=== PATIENT | female | born 1970 | race Caucasian/White ===

== ENCOUNTER 2021-09-18 02:33 | Emergency (ER) | payer BC, OTHER ==
[2021-09-18] MEDS ORDERED: MAGNESIUM SULFATE 1 gm IVPB 1 GM/100 ML BAG IV ONE (03:28)
[2021-09-18] MEDS ORDERED: ONDANSETRON 4 MG/2 ML VIAL ONE ×2 (03:28→05:50)
[2021-09-18] MEDS ORDERED: MORPHINE 4 MG/ML SYR ONE (03:29)
[2021-09-18 03:43] LABS: Absolute Lymphocytes (CBC) 2.8 K/uL (0.7-4.9); Lymphocytes % 36.3 % (15.3-44.8); MPV 7.9 fL (7.6-11.3); RBC Red Blood Cell Count 4.74 M/uL (3.86-4.86)
[2021-09-18 03:52] LABS: Urine Appearance CLOUDY (Clear); Urine Bilirubin NEGATIVE (Negative); Urine Blood 2+ (Negative); Urine Color YELLOW (Yellow); Urine Glucose NEGATIVE (Negative); Urine Protein NEGATIVE (Negative); Urine Specific Gravity 1.025 (1.005-1.030); Urine pH 5.5 (5.0-7.0)
[2021-09-18 03:53] LABS: Urine Microscopic Reflex ORDER UMIC
[2021-09-18] MEDS ORDERED: MEPERIDINE HCL 25 MG/ML SYR ONE ×2 (03:56→05:50)
[2021-09-18 03:57] LABS: Potassium 3.4 mmol/L (3.5-5.1)
[2021-09-18 04:18] LABS: Urine Bacteria >50 /HPF (<20); Urine Mucus 2+ /HPF (NONE SEEN)
[2021-09-18] MEDS ORDERED: NA CHLORIDE 0.9% 1,000 ML ONE (04:59)
[2021-09-18] MEDS ORDERED: metroNIDAZOLE 500 MG TABLET ONE (04:59)
[2021-09-18] MEDS ORDERED: KETOROLAC 30 MG/ML INJ ONE (04:59)
[2021-09-18] MEDS ORDERED: CIPROFLOXACIN HCL 500 MG TAB ONE (04:59)
--- NOTE | 2021-09-18 05:39 | EDPHYS ---
Physician Documentation [facility] Name: Nevaeh Verde Age: 50 yrs Sex: Female : 1970 Arrival Date: 09/18/2021 Time: 02:37 Bed 15 Private MD: ED Physician Jamey Jimenez HPI: 09/18 02:54 This 50 yrs old Female presents to ER via Ambulatory with complaints of Back Pain - rn Left. 02:54 The patient complains of pain in the left low back and left mid back. The pain radiates rn to the abdomen. Onset: The symptoms/episode began/occurred 1 hour(s) ago. Modifying factors: The symptoms are alleviated by nothing. the symptoms are aggravated by nothing. Associated signs and symptoms: Pertinent positives: nausea, vomiting, Pertinent negatives: fever, urinary frequency, hematuria. Severity of pain: At its worst the pain was moderate in the emergency department the pain is unchanged. The patient has not experienced similar symptoms in the past. The patient has not recently seen a physician. Pt reports left flank pain, radiates to LLQ abdomen, began 1 hour ago and woke her up from sleep. No fever. No trauma. + nausea/vomiting. + famhx of kidney stones. . Historical: - Allergies: 02:53 No Known Allergies; st1 - PMHx: 02:53 Hypertensive disorder; st1 - Immunization history:: Adult Immunizations not up to date, Flu vaccine is not up to date. - Social history:: Smoking status: Patient denies any tobacco usage or history of. Patient/guardian denies using alcohol, street drugs, IV drugs, tobacco products. - Family history:: pertinent for kidney stones. - Hospitalizations: : No recent hospitalization is reported. ROS: 02:54 Constitutional: Negative for fever, chills, and weight loss, Eyes: Negative for injury, rn pain, redness, and discharge, Neck: Negative for injury, pain, and swelling, Cardiovascular: Negative for chest pain, palpitations, and edema, Respiratory: Negative for shortness of breath, cough, wheezing, and pleuritic chest pain, Abdomen/GI: + LLQ abd pain Back: + left lower back/flank pain : Negative for injury, bleeding, discharge, and swelling, MS/Extremity: Negative for injury and deformity, Skin: Negative for injury, rash, and discoloration, Neuro: Negative for headache, weakness, numbness, tingling, and seizure. Exam: 02:54 Constitutional: This is a well developed, well nourished patient who is awake, alert, rn appears uncomfortable, pacing Head/Face: Normocephalic, atraumatic. Eyes: Periorbital areas with no swelling, redness, or edema. Cardiovascular: Regular rate and rhythm. No pulse deficits. Respiratory: No increased work of breathing, no retractions or nasal flaring. Abdomen/GI: Soft, non-tender Skin: Warm, dry MS/ Extremity: Pulses equal, no cyanosis. Neuro: Awake and alert, GCS 15 Vital Signs: 02:52 BP 159 / 98; Pulse 78; Resp 16; Temp 98.1; Pulse Ox 98% on R/A; Pain 7/10; st1 02:57 Weight 86.18 kg; Height 5 ft. 4 in. (162.56 cm); lg3 05:43 BP 120 / 85; Pulse 59; Resp 17; Temp 98.1(O); Pulse Ox 99% on R/A; lg3 02:57 Body Mass Index 32.61 (86.18 kg, 162.56 cm) lg3 MDM: 02:38 Patient medically screened. rn 04:54 Differential diagnosis: nephrolithiasis, pyelonephritis, UTI, diverticulitis, rn mesenteric adenitis, viral syndrome, constipation. Data reviewed: vital signs, nurses notes, lab test result(s), radiologic studies. Response to treatment: the patient's symptoms have mildly improved after treatment. ED course: Pt still uncomfortable, states pain has improved but not gone. CT shows only mesenteric adenitis or nonspecific mesenteric edema. Pt without vascular hx and not in irregular heart rhythm to suggest mesenteric ischemia. Pt states had "stomach bug" 2 days ago with vomiting and diarrhea, and could explain some nonspecific mesenteric adenitis. Will give toradol and cover with abx for possible enteritis/colitis that we are just not seeing yet. . 05:37 Counseling: I had a detailed discussion with the patient and/or guardian regarding: the rn historical points, exam findings, and any diagnostic results supporting the discharge/admit diagnosis, lab results, radiology results, the need for outpatient follow up, to return to the emergency department if symptoms worsen or persist or if there are any questions or concerns that arise at home. Special discussion: Based on the patient's Hx, exam, and Dx evaluation, there is no indication for emergent surgery or inpatient Tx. It is understood by the patient/guardian that if the Sx's persist or worsen they need to return immediately for re-evaluation. I discussed with the patient/guardian in detail that at this point there is no indication for admission to the hospital. It is understood, however, that if the symptoms persist or worsen the patient needs to return immediately for re-evaluation. 09/18 02:53 Order name: CBC with Diff; Complete Time: 04:36 rn 09/18 02:53 Order name: Basic Metabolic Panel; Complete Time: 04:36 rn 09/18 02:53 Order name: Urine Culture rn 09/18 03:46 Order name: Urinalysis; Complete Time: 04:36 EDMS 09/18 03:54 Order name: Urine Microscopic Only; Complete Time: 04:36 EDMS 09/18 02:53 Order name: CT Stone Protocol rn 09/18 02:53 Order name: IV Start; Complete Time: 03:57 rn 09/18 02:53 Order name: Urine Dipstick-Ancillary (obtain specimen); Complete Time: 04:06 rn Administered Medications: 03:30 Drug: Zofran (Ondansetron) 4 mg Route: IVP; Site: right antecubital; lg3 03:31 Follow up: Response: No adverse reaction lg3 03:31 Drug: morphine 4 mg Route: IVP; Site: right antecubital; lg3 03:31 Follow up: Response: No adverse reaction; RASS: Alert and Calm (0) lg3 03:31 Drug: Magnesium Sulfate 1 grams Route: IVPB; Infused Over: 1 hrs; Site: right lg3 antecubital; 05:06 Follow up: Response: No adverse reaction; IV Status: Completed infusion; IV Intake: lg3 100ml 03:56 Drug: Demerol (meperidine) 25 mg Route: IVP; Site: right antecubital; lg3 03:56 Follow up: Response: No adverse reaction; RASS: Alert and Calm (0) lg3 05:06 Drug: Cipro (ciprofloxacin) 500 mg Route: PO; lg3 05:06 Follow up: Response: No adverse reaction lg3 05:06 Drug: Flagyl (metroNIDAZOLE) 500 mg Route: PO; lg3 05:06 Follow up: Response: No adverse reaction lg3 05:06 Drug: Ketorolac 30 mg Route: IVP; Site: right antecubital; lg3 05:06 Follow up: Response: No adverse reaction lg3 05:06 Drug: NS 0.9% 1000 ml Route: IV; Rate: 1000 ml; Site: right antecubital; lg3 06:09 Follow up: IV Status: Completed infusion; IV Intake: 1000ml lg3 05:52 Drug: Demerol (meperidine) 25 mg Route: IVP; Site: right antecubital; lg3 05:53 Follow up: Response: No adverse reaction; RASS: Alert and Calm (0) lg3 05:53 Drug: Zofran (Ondansetron) 4 mg Route: IVP; Site: right antecubital; lg3 05:53 Follow up: Response: No adverse reaction lg3 Disposition Summary: 09/18/21 05:38 Discharge Ordered Location: Home rn Problem: new rn Symptoms: have improved rn Condition: Stable rn Diagnosis - Nonspecific mesenteric lymphadenitis rn - Abdominal pain, unspecified rn Followup: rn - With: Private Physician - When: As needed - Reason: Recheck today's complaints, Re-evaluation by your physician Discharge Instructions: - Discharge Summary Sheet rn - Abdominal Pain, Adult rn - Mesenteric Adenitis, yarn examiner skeins Forms: - Medication Reconciliation Form rn - Thank You Letter rn - Antibiotic dental intern - Prescription Opioid Use rn Prescriptions: - Flagyl 500 mg Oral Tablet - take 1 tablet by ORAL route every 12 hours for 7 days; 14 tablet; Refills: 0, rn Product Selection Permitted - Cipro 500 mg Oral Tablet - take 1 tablet by ORAL route every 12 hours for 7 days; 14 tablet; Refills: 0, rn Product Selection Permitted - ondansetron 4 mg Oral tablet,disintegrating - take 1 tablet by ORAL route every 8 hours As needed; 15 tablet; Refills: 0, rn Product Selection Permitted - Tramadol 50 mg Oral Tablet - take 1 tablet by ORAL route every 8 hours as needed; 12 tablet; Refills: 0, rn Product Selection Permitted Signatures: Dispatcher [employer] EDJamey Oconnor MD MD rn Gibson, Lacie RN RN lg3 Dianna Butcher RN RN st1 Corrections: (The following items were deleted from the chart) 03:46 02:53 UA MICROSCOPIC+U.LAB.BRZ ordered. EDMS EDMS
--- NOTE | 2021-09-18 05:39 | ER ---
Nurse's Notes [facility] Name: Nevaeh Verde Age: 50 yrs Sex: Female : 1970 Arrival Date: 09/18/2021 Time: 02:37 Bed 15 Private MD: Diagnosis: Nonspecific mesenteric lymphadenitis;Abdominal pain, unspecified Presentation: 09/18 02:46 Chief complaint: Patient states: The patient woke up with left kidney pain that st1 radiates to the left lower quadrant. 02:46 Method Of Arrival: Ambulatory st1 02:52 Coronavirus screen: Vaccine status: Patient reports being unvaccinated. Ebola Screen: st1 No symptoms or risks identified at this time. Initial Sepsis Screen: Does the patient meet any 2 criteria? No. Patient's initial sepsis screen is negative. Does the patient have a suspected source of infection? No. Patient's initial sepsis screen is negative. Risk Assessment: Do you want to hurt yourself or someone else? Patient reports no desire to harm self or others. Onset of symptoms was September 18, 2021. 02:52 Acuity: ROSETTA 3 st1 Triage Assessment: 02:53 General: Appears distressed, uncomfortable, obese, well groomed, Behavior is st1 cooperative, anxious. Pain: Complains of pain in back- left lower Pain radiates to leftl ower quadrant. Musculoskeletal: No deficits noted. Historical: - Allergies: 02:53 No Known Allergies; st1 - PMHx: 02:53 Hypertensive disorder; st1 - Immunization history:: Adult Immunizations not up to date, Flu vaccine is not up to date. - Social history:: Smoking status: Patient denies any tobacco usage or history of. Patient/guardian denies using alcohol, street drugs, IV drugs, tobacco products. - Family history:: pertinent for kidney stones. - Hospitalizations: : No recent hospitalization is reported. Screenin:55 Abuse screen: Denies threats or abuse. Nutritional screening: No deficits noted. st1 Tuberculosis screening: No symptoms or risk factors identified. Fall Risk None identified. No fall in past 12 months (0 pts). No secondary diagnosis (0 pts). IV access (20 points). Ambulatory Aid- None/Bed Rest/Nurse Assist (0 pts). Gait- Normal/Bed Rest/Wheelchair (0 pts) Mental Status- Oriented to own ability (0 pts). Total Moses Fall Scale indicates No Risk (0-24 pts). Assessment: 02:55 Reassessment: Patient appears in no apparent distress at this time. please see triage st1 assessment. Neuro: No deficits noted. 04:07 General: Appears in no apparent distress. uncomfortable, Behavior is cooperative. Pain: lg3 Complains of pain in left mid back and left low back Pain currently is 10 out of 10 on a pain scale. Neuro: No deficits noted. Level of Consciousness is awake, alert, obeys commands, Oriented to person, place, time, situation. Vital Signs: 02:52 BP 159 / 98; Pulse 78; Resp 16; Temp 98.1; Pulse Ox 98% on R/A; Pain 7/10; st1 02:57 Weight 86.18 kg; Height 5 ft. 4 in. (162.56 cm); lg3 05:43 BP 120 / 85; Pulse 59; Resp 17; Temp 98.1(O); Pulse Ox 99% on R/A; lg3 02:57 Body Mass Index 32.61 (86.18 kg, 162.56 cm) lg3 ED Course: 02:37 Patient arrived in ED. wm 02:38 Jamey Jimenez MD is Attending Physician. rn 02:53 Triage completed. st1 02:53 Arm band placed on right wrist. st1 02:55 Patient has correct armband on for positive identification. st1 03:06 Jaylyn Dixon, RN is Primary Nurse. lg3 04:01 CT Stone Protocol In Process Unspecified. EDMS 04:08 Inserted saline lock: 20 gauge in right antecubital area, using aseptic technique. lg3 Blood collected. 05:44 No provider procedures requiring assistance completed. lg3 06:05 IV discontinued, intact, bleeding controlled, No redness/swelling at site. Pressure lg3 dressing applied. Administered Medications: 03:30 Drug: Zofran (Ondansetron) 4 mg Route: IVP; Site: right antecubital; lg3 03:31 Follow up: Response: No adverse reaction lg3 03:31 Drug: morphine 4 mg Route: IVP; Site: right antecubital; lg3 03:31 Follow up: Response: No adverse reaction; RASS: Alert and Calm (0) lg3 03:31 Drug: Magnesium Sulfate 1 grams Route: IVPB; Infused Over: 1 hrs; Site: right lg3 antecubital; 05:06 Follow up: Response: No adverse reaction; IV Status: Completed infusion; IV Intake: lg3 100ml 03:56 Drug: Demerol (meperidine) 25 mg Route: IVP; Site: right antecubital; lg3 03:56 Follow up: Response: No adverse reaction; RASS: Alert and Calm (0) lg3 05:06 Drug: Cipro (ciprofloxacin) 500 mg Route: PO; lg3 05:06 Follow up: Response: No adverse reaction lg3 05:06 Drug: Flagyl (metroNIDAZOLE) 500 mg Route: PO; lg3 05:06 Follow up: Response: No adverse reaction lg3 05:06 Drug: Ketorolac 30 mg Route: IVP; Site: right antecubital; lg3 05:06 Follow up: Response: No adverse reaction lg3 05:06 Drug: NS 0.9% 1000 ml Route: IV; Rate: 1000 ml; Site: right antecubital; lg3 06:09 Follow up: IV Status: Completed infusion; IV Intake: 1000ml lg3 05:52 Drug: Demerol (meperidine) 25 mg Route: IVP; Site: right antecubital; lg3 05:53 Follow up: Response: No adverse reaction; RASS: Alert and Calm (0) lg3 05:53 Drug: Zofran (Ondansetron) 4 mg Route: IVP; Site: right antecubital; lg3 05:53 Follow up: Response: No adverse reaction lg3 Intake: 05:06 IV: 100ml; Total: 100ml. lg3 06:09 IV: 1000ml; Total: 1100ml. lg3 Outcome: 05:38 Discharge ordered by . rn 06:04 Discharged to home ambulatory, with family. lg3 06:04 Condition: stable 06:04 Discharge instructions given to patient, Instructed on discharge instructions, follow up and referral plans. medication usage, Prescriptions given X 4. 06:09 Patient left the ED. lg3 Signatures: Dispatcher [employer] EDMS Jamey Jimenez MD MD rn Gibson, Lacie RN STEPHAN lg3 Sarita Charles Shellie RN RN st1 Corrections: (The following items were deleted from the chart) 02:53 02:46 Coronavirus screen: Vaccine status: st1 st1
[2021-09-18 06:16] VITALS: TEMP 98.1
[2021-09-18 06:17] VITALS: BP 120/85; O2SAT 99
--- NOTE | 2021-09-18 21:32 | RAD REPORT ---
EXAM DESCRIPTION: CT Abdomen and Pelvis Without Intravenous Contrast CLINICAL HISTORY: The patient is 50 years old and is Female; left flank and abd pain TECHNIQUE: Axial computed tomography images of the abdomen and pelvis without intravenous contrast. Sagittal and coronal reformatted images were created and reviewed. This CT exam was performed usi ng one or more of the following dose reduction techniques: automated exposure control, adjustment o f the mA and/or kV according to patient size, and/or use of iterative reconstruction technique. COMPARISON: No relevant prior studies available. FINDINGS: Lung bases: Unremarkable. No mass. No consolidation. ABDOMEN: Liver: Diffuse hepatic steatosis. Gallbladder and bile ducts: Unremarkable. No calcified stones. No ductal dilation. Pancreas: Unremarkable. No ductal dilation. Spleen: Unremarkable. No splenomegaly. Adrenals: Unremarkable. No mass. Kidneys and ureters: Nonobstructing calcification in the left kidney. Multiple renal sinus cysts bilaterally. Stomach and bowel: Unremarkable. No obstruction. No mucosal thickening. PELVIS: Appendix: No findings to suggest acute appendicitis. Bladder: Unremarkable. No stones. Reproductive: Uterus is not seen. ABDOMEN and PELVIS: Intraperitoneal space: Unremarkable. No free air. No significant fluid collection. Bones/joints: No acute fracture. No dislocation. Soft tissues: Unremarkable. Vasculature: Unremarkable. No abdominal aortic aneurysm. Lymph nodes: There is mild mesenteric edema in the left mid abdomen with adjacent prominent/enlar ged lymph nodes. IMPRESSION: 1. There is mild mesenteric edema in the left mid abdomen with adjacent prominent/enla rged lymph nodes. Findings are nonspecific but can be seen with mesenteric adenitis. 2. Diffuse hepatic steatosis. 3. Uterus is not seen. Electronically signed by: Surya Iqbal MD 09/18/2021 4:26 AM DISPATCH CLERK Due to temporary technical issues with the PACS/Fluency reporting system, reports are being signed by the in house radiologists without review as a courtesy to insure prompt reporting. The interpreting radiologist is fully responsible for the content of the report.
== END 2021-09-18 06:09 | disposition home or self-care (01) ==
LOC: ER 02:33
DX: I88.0 Nonspecific mesenteric lymphadenitis (principal); R11.2 Nausea with vomiting, unspecified; I10 Essential (primary) hypertension; Z87.442 Personal history of urinary calculi
CPT/HCPCS: 96365; 96361; 87088; 85025; 87086; 80048; 36415; 76377; 74176; 96375; 99284; 96366; J3475; J2175 ×2; J7030; J2405 ×2; 81003; 81015

== ENCOUNTER 2022-02-08 18:21 | Emergency (ER) | payer BC, OTHER ==
--- OUTSIDE RECORDS SUMMARY | 2022-02-08 19:22 | XMS REPORT | Continuity of Care Document ---
:1970 Author Organization [facility] t Address [address] [place] [address] Care Team Providers Name Role Phone KT CAMPBELL Attending Clinician Unavailable GILLIAN HUDSON Admitting Clinician Unavailable Problems This patient has no known problems. Allergies, Adverse Reactions, Alerts This patient has no known allergies or adverse reactions. Medications This patient has no known medications. Procedures This patient has no known procedures. Encounters Start End Encounter Admission Attending Care Care Encounter Source Date/Time Date/Time Type Type Clinicians Facility Department ID 2022-01-06 2022-01-08 Inpatient U JAVED CAMPBELL MED [id number] [facility] 09:43:00 12:10:00 KT mathis [facility] Results This patient has no known results.
[2022-02-08] MEDS ORDERED: NA CHLORIDE 0.9% 1,000 ML ONE (19:41)
[2022-02-08] MEDS ORDERED: MAGNESIUM SULFATE 1 gm IVPB 1 GM/100 ML BAG IV ONE (19:42)
[2022-02-08 19:52] LABS: Absolute Lymphocytes (CBC) 3.5 K/uL (0.7-4.9); Hematocrit 42.4 % (36.0-45.0); Lymphocytes % 45.6 % (15.3-44.8); MCV 86.9 fL (80-100); RBC Red Blood Cell Count 4.88 M/uL (3.86-4.86)
[2022-02-08 19:53] LABS: Urine Blood 1+ (Negative); Urine Glucose Negative (Negative); Urine Protein Negative (Negative); Urine Specific Gravity >=1.030 (1.005-1.030); Urine pH 5.5 (5.0-7.0)
[2022-02-08 20:14] LABS: Potassium 3.7 mmol/L (3.5-5.1); Troponin High Sensitivity 4.3 pg/mL (<58.9)
[2022-02-08 20:36] LABS: Urine Bacteria 20-50 /HPF (<20)
--- NOTE | 2022-02-08 20:49 | RAD REPORT ---
EXAM DESCRIPTION: CT - Head Brain Wo Cont - 02/08/2022 8:32 pm CLINICAL HISTORY: dizziness, weakness Headache, drowsiness COMPARISON: No comparisons TECHNIQUE: All CT scans are performed using dose optimization technique as appropriate and may inclu de automated exposure control or mA/KV adjustment according to patient size. FINDINGS: No intracranial hemorrhage, hydrocephalus or extra-axial fluid collection.Mild brain atrop hy.No areas of brain edema or evidence of midline shift. The paranasal sinuses and mastoids are clear. The calvarium is intact. IMPRESSION: No acute intracranial abnormality.
--- NOTE | 2022-02-08 20:54 | RAD REPORT ---
EXAM DESCRIPTION: CT - Chest For Pe Angio - 02/08/2022 8:39 pm CLINICAL HISTORY: Chest pain. positive ddimer COMPARISON: No comparisons TECHNIQUE: CT angiogram of the pulmonary arteries was performed with MIP. All CT scans are performed using dose optimization technique as appropriate and may include automated exposure control or mA/KV adjustment according to patient size. FINDINGS: No evidence of pulmonary thromboembolism. No acute aortic finding demonstrated. The lungs are clear. No significant pericardial or pleural fluid. No concerning bony finding. Fatty liver. IMPRESSION: No evidence of pulmonary thromboembolism. No acute lung findings.
--- NOTE | 2022-02-08 20:58 | RAD REPORT ---
EXAM DESCRIPTION: RAD - Chest Single View - 02/08/2022 8:46 pm CLINICAL HISTORY: palpatations Chest pain. COMPARISON: CHEST PA AND LAT 2 VIEW dated 08/01/2012; CHEST PA AND LAT 2 VIEW dated 07/14/2012; CHEST P A AND LAT 2 VIEW dated 06/21/2011; CHEST PA AND LAT 2 VIEW dated 06/23/2010 FINDINGS: Portable technique limits examination quality. The lungs are grossly clear. The heart is normal in size. No displaced fractures. IMPRESSION: No acute intrathoracic process suspected.
[2022-02-09 06:00] VITALS: TEMP 97.7
[2022-02-09 06:02] VITALS: BP 148/90; O2SAT 94
--- NOTE | 2022-02-09 07:20 | EKG ---
Test Date: 2022-02-08 Test Time: 19:27:50 [place] Man: ARNALDO MEASUREMENT RESULTS: Intervals: Rate: 90 ID: [id number] QRSD: 82 QT: 370 QTc: 452 [place]: P: 52 ID: [id number] QRS: 47 T: 59 INTERPRETIVE STATEMENTS: Normal sinus rhythm Normal ECG Compared to ECG 06/23/2010 12:56:10 Sinus arrhythmia no longer present Electronically Signed On 02-09-22 07:19:19 CDT by Lavelle Peace
--- NOTE | 2022-02-09 07:20 | EKG ---
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
--- NOTE | 2022-02-09 10:32 | EDPHYS ---
Physician Documentation [facility] Name: Nevaeh Verde Age: 51 yrs Sex: Female : 1970 Arrival Date: 02/08/2022 Time: 18:23 Bed 4 Private MD: ED Physician Jamey Jimenez HPI: 02/08 19:15 This 51 yrs old Female presents to ER via Ambulatory with complaints of Dizziness, rn Weakness. 19:15 The patient presents with dizziness, feeling faint, lightheadedness. Onset: The rn symptoms/episode began/occurred today. Modifying factors: The symptoms are alleviated by nothing, the symptoms are aggravated by movement of head, standing up. Associated signs and symptoms: Pertinent positives: shortness of breath, Pertinent negatives: abdominal pain, chest pain, seizure, syncope, vomiting. Severity of symptoms: At their worst the symptoms were moderate in the emergency department the symptoms have improved. The patient has experienced similar episodes in the past. The patient has not recently seen a physician. Pt reports intermittent episodes of dizziness, palpitations, sob. Reports lasts for a few minutes. is Fire/EMS and palpated and auscultated irregular HR into 120s. Pt states has happened before but not for about a month. No medication changes. Reports feels "weak all over". No focal weakness/numbness/speech problem. No chest pain. NO vomiting/diarrhea. No blood in stool or dark stool.. Historical: - Allergies: 19:01 No Known Allergies; eh3 - PMHx: 19:01 Hypertensive disorder; eh3 - Immunization history:: Adult Immunizations up to date. - Family history:: not pertinent. - Social history:: Smoking status: Patient denies any tobacco usage or history of. - Hospitalizations: : No recent hospitalization is reported. ROS: 19:15 Constitutional: Negative for fever, chills, and weight loss, Eyes: Negative for injury, rn pain, redness, and discharge, Neck: Negative for injury, pain, and swelling, Cardiovascular: Negative for chest pain, and edema, Respiratory: Negative for cough, wheezing, and pleuritic chest pain, Abdomen/GI: Negative for abdominal pain, nausea, vomiting, diarrhea, and constipation, Back: Negative for injury and pain, : Negative for injury, bleeding, discharge, and swelling, MS/Extremity: Negative for injury and deformity, Skin: Negative for injury, rash, and discoloration, Neuro: Negative for headache, numbness, tingling, and seizure Exam: 19:15 Constitutional: This is a well developed, well nourished patient who is awake, alert, rn and in no acute distress. Head/Face: Normocephalic, atraumatic. Eyes: Periorbital areas with no swelling, redness, or edema. ENT: dry MM Cardiovascular: Regular rate, irregular rhythm. No pulse deficits. Respiratory: Mild tachypnea, no retractions, speaking full sentences. Abdomen/GI: Soft, non-tender Skin: Warm, dry MS/ Extremity: Pulses equal, no cyanosis. Neurovascular intact. Full, normal range of motion. Equal circumference. Neuro: Awake and alert, GCS 15, oriented to person, place, time, and situation. Cranial nerves II-XII grossly intact. Motor strength 5/5 in all extremities. Sensory grossly intact. Cerebellar exam normal. 19:50 ECG was reviewed by the Attending Physician. rn Vital Signs: 18:54 BP 134 / 106; Pulse 101; Resp 20; Temp 97.7; Pulse Ox 100% on R/A; Weight 87.54 kg; eh3 Height 5 ft. 4 in. (162.56 cm); Pain 1/10; 19:33 BP 148 / 90; Pulse 92; Resp 16; Pulse Ox 94% on R/A; Pain 0/10; kl 18:54 Body Mass Index 33.13 (87.54 kg, 162.56 cm) eh3 NIH Stroke Scale Scores: 19:32 NIHSS Score: 0 kl MDM: 19:00 Patient medically screened. rn 21:36 Differential diagnosis: cardiac arrhythmia, generalized weakness, hyperventilation, rn hypovolemia, idiopathic dizziness, near-syncope, vertigo, dehydration, COVID, electrolyte disorder, hypertensive episodes, MVP. Data reviewed: vital signs, nurses notes, lab test result(s), EKG, radiologic studies, CT scan, plain films, and as a result, I will discharge patient. Counseling: I had a detailed discussion with the patient and/or guardian regarding: the historical points, exam findings, and any diagnostic results supporting the discharge/admit diagnosis, lab results, radiology results, the need for outpatient follow up, to return to the emergency department if symptoms worsen or persist or if there are any questions or concerns that arise at home. Response to treatment: the patient's symptoms have markedly improved after treatment, the patient's condition has returned to base line, the patient is now symptom free, and as a result, I will discharge patient. Special discussion: I discussed with the patient/guardian in detail that at this point there is no indication for admission to the hospital. It is understood, however, that if the symptoms persist or worsen the patient needs to return immediately for re-evaluation. Based on the history and exam findings, there is no indication for further emergent testing or inpatient evaluation. I discussed with the patient/guardian the need to see the peer financial counselor for further evaluation of the symptoms. ED course: Pt back to baseline, states this has happened several times in past, going on "for years", no acute findings here, ct head and chest neg for acute findings. Urine shows RBCs but recently s/p ureteral stent and hx of kidney stones. Will dc home with cardiology f/u for ECHO/holter. Return precautions given and understood.. 02/08 19:10 Order name: SARS-COV-2 RT PCR (Document "Date of Onset" if Symptomatic) 02/08 19:10 Order name: Urine Microscopic Only 02/08 19:49 Order name: Basic Metabolic Panel; Complete Time: 20:17 [facility] 02/08 19:49 Order name: Troponin High Sensitivity; Complete Time: 20:17 [facility] 02/08 19:50 Order name: NT PRO-BNP; Complete Time: 20:17 [facility] 02/08 19:50 Order name: Magnesium; Complete Time: 20:17 [facility] 02/08 19:50 Order name: CBC with Automated Diff; Complete Time: 20:01 [facility] 02/08 19:50 Order name: D-Dimer; Complete Time: 20:01 [facility] 02/08 19:10 Order name: EKG; Complete Time: 08:33 02/08 19:10 Order name: Cardiac monitoring; Complete Time: 19:35 02/08 19:10 Order name: EKG - Nurse/Tech; Complete Time: 19:35 02/08 19:10 Order name: IV Saline Lock; Complete Time: 19:35 02/08 19:10 Order name: Labs collected and sent; Complete Time: 19:35 02/08 19:10 Order name: CT Head Brain wo Cont rn 02/08 19:53 Order name: Urine Dipstick-Ancillary; Complete Time: 20:01 EDMS 02/08 20:01 Order name: CT Chest For PE Angio rn 02/08 20:11 Order name: Chest For Pe Angio; Complete Time: 21:20 EDMS 02/08 20:11 Order name: Head Brain Wo Cont; Complete Time: 21:20 EDMS 02/08 20:11 Order name: Chest Single View; Complete Time: 21:20 EDMS 02/08 20:19 Order name: Urine Microscopic Only; Complete Time: 20:40 EDMS 02/08 20:42 Order name: Urine Culture EDNJ 02/08 19:10 Order name: O2 Per Protocol; Complete Time: 19:35 rn 02/08 19:10 Order name: O2 Sat Monitoring; Complete Time: 19:35 rn 02/08 19:10 Order name: Urine Dipstick-Ancillary (obtain specimen); Complete Time: 19:53 rn EC:50 Rate is 90 beats/min. Rhythm is regular. QRS [place] is Normal. [place] interval is normal. QRS rn interval is normal. QT interval is normal. No Q waves. T waves are Normal. No ST changes noted. Clinical impression: Normal ECG. Interpreted by me. Reviewed by me. Administered Medications: 19:47 Drug: Magnesium Sulfate 1 grams Route: IVPB; Infused Over: 1 hrs; Site: left forearm; aa9 22:03 Follow up: Response: No adverse reaction; IV Status: Completed infusion; IV Intake: aa9 100ml 22:03 Not Given (discharged prior to administration): NS 0.9% 1000 ml IV at 1000 ml once aa9 Disposition Summary: 02/08/22 21:39 Discharge Ordered Location: Home rn Problem: an ongoing problem rn Symptoms: have improved rn Condition: Stable rn Diagnosis - Palpitations rn - Dizziness and giddiness rn Followup: rn - With: Lavelle Peace MD - When: As needed - Reason: Recheck today's complaints, Re-evaluation by your physician Discharge Instructions: - Discharge Summary Sheet rn - Dizziness rn - Near-Syncope rn - Palpitations rn Forms: - Medication Reconciliation Form rn - Thank You Letter rn - Antibiotic charcoal burner beehive kiln - Prescription Opioid Use rn NIH Stroke Scale - NIH Stroke Score Date: 02/08/2022 Time: 19:32 Total Score = 0 1a. Level of Consciousness (LOC) - 0(Alert) 1b. Level of Consciousness (LOC) (Month \\T\\ Age) - 0(Both) 1c. LOC Commands (Open \\T\\ Closes Eyes/Felt Checker) - 0(Both) 2. Best Gaze (Lateral Gaze Paresis) - 0(Normal) 3. Visual Field Loss - 0(No visual loss) 4. Facial Palsy - 0(Normal) 5a. Left Arm: Motor (10-second hold) - 0(No drift) 5b. Right Arm: Motor (10-second hold) - 0(No drift) 6a. Left Leg: Motor (5-second hold - always test supine) - 0(No drift) 6b. Right Leg: Motor (5-second hold - always test supine) - 0(No drift) 7. Limb Ataxia (finger/nose \\T\\ heel/juares - test with eyes open) - 0(Absent) 8. Sensory Loss (pinprick arms/legs/face) - 0(Normal) 9. Best Language: Aphasia (description/naming/reading) - 0(No aphasia) 10. Dysarthria (speech clarity - read or repeat words) - 0(Normal) 11. Extinction and Inattention (visual/tactile/auditory/spatial/personal) - 0(No abnormality) Initials: kl Signatures: Dispatcher [employer] Jamey Lopez MD MD rn Hall, Criss 3 Angie Bird RN RN aa9
--- NOTE | 2022-02-09 10:32 | ER ---
Nurse's Notes [facility] Name: Nevaeh Verde Age: 51 yrs Sex: Female : 1970 Arrival Date: 02/08/2022 Time: 18:23 Bed 4 Private MD: Diagnosis: Palpitations;Dizziness and giddiness Presentation: 02/08 18:54 Chief complaint: Patient states: dizziness, weakness, visual disturbance, eh3 forgetfulness, since 2 hours ago. Ebola Screen: No symptoms or risks identified at this time. An acute neurological deficit is present. The patient has been moved to a treatment area. Initial Sepsis Screen: Does the patient meet any 2 criteria? No. Patient's initial sepsis screen is negative. Does the patient have a suspected source of infection? No. Patient's initial sepsis screen is negative. Risk Assessment: Do you want to hurt yourself or someone else?. Onset of symptoms was February 08, 2022 at 17:00. 18:54 Method Of Arrival: Ambulatory [facility] 18:54 Acuity: ROSETTA 2 eh3 22:01 Coronavirus screen: Vaccine status: Patient reports being unvaccinated. aa9 Triage Assessment: 19:01 The onset of the patients symptoms was February 08, 2022 at 17:00. General: Appears in no eh3 apparent distress. comfortable, Behavior is calm, cooperative, appropriate for age. Pain: Denies pain. Neuro: Level of Consciousness is awake, alert, obeys commands, Oriented to person, place, time, situation, [place] are equal bilaterally Weakness Gait is steady, Speech is normal, Facial symmetry appears normal, Pupils are PERRLA, Intact Reports dizziness, headache weakness. Cardiovascular: Reports lightheadedness, palpitations, Capillary refill < 3 seconds Patient's skin is warm and dry. Respiratory: Airway is patent Respiratory effort is even, unlabored. Historical: - Allergies: 19:01 No Known Allergies; eh3 - PMHx: 19: Hypertensive disorder; eh3 - Immunization history:: Adult Immunizations up to date. - Family history:: not pertinent. - Social history:: Smoking status: Patient denies any tobacco usage or history of. - Hospitalizations: : No recent hospitalization is reported. Screenin:34 Abuse screen: Denies threats or abuse. Nutritional screening: No deficits noted. kl Tuberculosis screening: No symptoms or risk factors identified. Fall Risk None identified. Assessment: 19:00 Reassessment: Notified ERP of symptoms. ERP at bedside assessing patient. eh3 19:32 VAN Scoring: Arm Drift: Patients demonstrates NO arm weakness. Patient is VAN Negative. kl Visual Disturbance: No visual disturbance noted. Aphasia: No aphasia noted. Neglect: Forced gaze noted or unable to track to one side. Provider notified of +VAN scoring. Patient has been NPO before screening. The patient is alert, and able to follow commands. The patient does not exhibit slurred or garbled speech. The patient is not exhibiting difficulty speaking. The patient does not exhibit difficulty understanding words. The patient is able to swallow own secretions with no drooling or need for suction. Patient tolerated one teaspoon of water. No drooling, immediate coughing, gurgling, or clearing of the throat was noted. The patient tolerated 90mL of water. No drooling, immediate coughing, gurgling, or clearing of the throat was noted. The patient passed the bedside swallow screening. Oral medications may be given as ordered. Contact Physician for further diet orders. TNKase (Tenecteplase) Screening: Indications:. 19:35 General: Appears in no apparent distress. comfortable, Behavior is calm, cooperative. kl Pain: Denies pain. Neuro: Ha Agitation-Sedation Scale (RASS): 0 - Alert and Calm Level of Consciousness is awake, alert, obeys commands, Oriented to person, place, time, situation, [place] are equal bilaterally Moves all extremities. Full function Gait is steady, Speech is slurred, Facial symmetry appears normal, Pupils are PERRLA, Intact Babinski is negative. Cardiovascular: Denies chest pain, Heart tones S1 S2 Capillary refill < 3 seconds Pulses are all present. Rhythm is sinus arrythmia Chest pain is denied. Respiratory: No deficits noted. Airway is patent Trachea deviated to right Respiratory effort is even, unlabored, Breath sounds are clear bilaterally. GI: No deficits noted. No signs and/or symptoms were reported involving the gastrointestinal system. Bowel sounds present X 4 quads. : No deficits noted. No signs and/or symptoms were reported regarding the genitourinary system. EENT: No deficits noted. No signs and/or symptoms were reported regarding the EENT system. Derm: No deficits noted. No signs and/or symptoms reported regarding the dermatologic system. Musculoskeletal: No deficits noted. No signs and/or symptoms reported regarding the musculoskeletal system. Parent/caregiver report the patient having dizziness when turning head at times. Vital Signs: 18:54 BP 134 / 106; Pulse 101; Resp 20; Temp 97.7; Pulse Ox 100% on R/A; Weight 87.54 kg; eh3 Height 5 ft. 4 in. (162.56 cm); Pain 1/10; 19:33 BP 148 / 90; Pulse 92; Resp 16; Pulse Ox 94% on R/A; Pain 0/10; kl 18:54 Body Mass Index 33.13 (87.54 kg, 162.56 cm) eh3 Vitals: 19:33 Cardiac Rhythm Assessment Sinus arrythmia. kl NIH Stroke Scale Scores: 19:32 NIHSS Score: 0 kl ED Course: 18:23 Patient arrived in ED. rg4 19:00 Jamey Jimenez MD is Attending Physician. rn 19:01 Triage completed. eh3 19:01 Arm band placed on right wrist. eh3 19:01 Patient has correct armband on for positive identification. Bed in low position. Side aa9 rails up X2. 19:34 Inserted saline lock: 20 gauge in left forearm, using aseptic technique. kl 19:58 Notified ED physician of a critical lab result(s). D-dimer 510. ll3 20:33 Head Brain Wo Cont In Process Unspecified. EDMS 20:41 Chest For Pe Angio In Process Unspecified. EDMS 20:48 Chest Single View In Process Unspecified. EDMS 21:38 Lavelle Peace MD is Referral Physician. rn 21:49 Angie Bidr RN is Primary Nurse. aa9 21:49 No provider procedures requiring assistance completed. IV discontinued, intact, aa9 bleeding controlled, No redness/swelling at site. Pressure dressing applied. Administered Medications: 19:47 Drug: Magnesium Sulfate 1 grams Route: IVPB; Infused Over: 1 hrs; Site: left forearm; aa9 22:03 Follow up: Response: No adverse reaction; IV Status: Completed infusion; IV Intake: aa9 100ml 22:03 Not Given (discharged prior to administration): NS 0.9% 1000 ml IV at 1000 ml once aa9 Medication: 22:02 VIS not applicable for this client. aa9 Intake: 22:03 IV: 100ml; Total: 100ml. aa9 Outcome: 21:39 Discharge ordered by . rn 21:49 Discharged to home ambulatory. aa9 21:49 Condition: stable 21:49 Discharge instructions given to patient, significant other, Instructed on discharge instructions, follow up and referral plans. Demonstrated understanding of instructions, follow-up care. 22:04 Patient left the ED. aa9 NIH Stroke Scale - NIH Stroke Score Date: 02/08/2022 Time: 19:32 Total Score = 0 1a. Level of Consciousness (LOC) - 0(Alert) 1b. Level of Consciousness (LOC) (Month \T\ Age) - 0(Both) 1c. LOC Commands (Open \T\ Closes Eyes/Mandate Retail Service Merchandiser) - 0(Both) 2. Best Gaze (Lateral Gaze Paresis) - 0(Normal) 3. Visual Field Loss - 0(No visual loss) 4. Facial Palsy - 0(Normal) 5a. Left Arm: Motor (10-second hold) - 0(No drift) 5b. Right Arm: Motor (10-second hold) - 0(No drift) 6a. Left Leg: Motor (5-second hold - always test supine) - 0(No drift) 6b. Right Leg: Motor (5-second hold - always test supine) - 0(No drift) 7. Limb Ataxia (finger/nose \T\ heel/juares - test with eyes open) - 0(Absent) 8. Sensory Loss (pinprick arms/legs/face) - 0(Normal) 9. Best Language: Aphasia (description/naming/reading) - 0(No aphasia) 10. Dysarthria (speech clarity - read or repeat words) - 0(Normal) 11. Extinction and Inattention (visual/tactile/auditory/spatial/personal) - 0(No abnormality) Initials: kl Signatures: Dispatcher [employer] Jessica Alba RN RN kl Nieto, Roman, MD MD rn Garcia, Rubi 4 Lydia Oglesby RN RN 3 Criss Caldwell [facility] Angie Bird RN RN aa9 Corrections: (The following items were deleted from the chart) 22:02 19:47 NS 0.9% 1000 ml IV at 1000 ml in left forearm aa9 aa9
== END 2022-02-08 22:04 | disposition home or self-care (01) ==
LOC: ER 18:21
DX: R00.2 Palpitations (principal); R42 Dizziness and giddiness; I10 Essential (primary) hypertension
CPT/HCPCS: 96365; 93005 ×2; 87088; 85025; 87086; 80048; 36415; 83735; 85379; 84484; 83880; 70450; 71275; 71045; 99284; 96366; Q9967 ×2; J3475; J7030; 81003; 81015